=== PATIENT | female | born 1980 | race Two or more races ===

== ENCOUNTER → 2017-07-04 | Outpatient (REF) | payer OTHER | LOC: M SFHCLERA 15:35 | DX: J02.9 Acute pharyngitis, unspecified (principal) ==

== ENCOUNTER 2017-12-21 07:46 | Emergency (ER) | payer OTHER | END 2017-12-21 08:45 | disposition home or self-care (01) | LOC: M ED 07:46 | DX: S05.01XA Injury of conjunctiva and corneal abrasion without foreign body, right eye, initial encounter (principal); X58.XXXA Exposure to other specified factors, initial encounter; Y92.9 Unspecified place or not applicable; Y93.89 Activity, other specified; Y99.9 Unspecified external cause status; K21.9 Gastro-esophageal reflux disease without esophagitis; F41.9 Anxiety disorder, unspecified; J30.2 Other seasonal allergic rhinitis; Z87.442 Personal history of urinary calculi; Z79.899 Other long term (current) drug therapy | CPT/HCPCS: 99282 ==

== ENCOUNTER 2019-03-10 06:11 | Day surgery (SDC) | payer OTHER ==
[~2019-03-10] VITALS: Ht 162.6 cm; Wt 77.1 kg
[2019-03-10] VITALS (7 sets, daily range): BP systolic 101–123; BP diastolic 57–75
[~2019-03-10 06:11] MED LIST: ADDE20CA3 PO; ALLE180T33 PO; BENA25CA4 PO; CETI10TA PO; ERYTOIN8 OD; LR 1,000 ML IV ONE; OMEP-218 PO; OMEP10CASR PO; SERT-138 PO; ZOLO50TA PO; ceFAZolin SOD 1 GM in D5W MINI-BAG PLUS 50 ML IV ONE
[2019-03-10 07:01] LABS: URINE PREG TEST NEGATIVE (NEGATIVE)
[2019-03-10] MEDS ORDERED: PROPOFOL 200 MG/20 ML VIAL As Ordered ONE ×2 (07:13→10:18)
[2019-03-10] MEDS ORDERED: ROCURONIUM BROMIDE 50 MG/5 ML VIAL As Ordered ONE (07:13)
[2019-03-10] MEDS ORDERED: LIDOCAINE 2% INJ 100 MG/5 ML SDV (FOR ANES.) As Ordered ONE (07:13)
[2019-03-10] MEDS ORDERED: fentaNYL 250 MCG/5 ML INJECTION (J3010) As Ordered ONE (07:13)
[2019-03-10] MEDS ORDERED: MIDAZOLAM INJ 2 MG/2 ML VIAL (J2250) As Ordered ONE (07:13)
[2019-03-10] MEDS ORDERED: BUPIVACAINE LIPOSOME/PF 1.3% 20ML VIAL (13.3MG/ML)(EXPAREL)(C9290 PER1MG) As Ordered ONE (07:23)
[2019-03-10] MEDS ORDERED: BACITRACIN PWD 50,000 UNITS VIAL As Ordered ONE (07:24)
[2019-03-10] MEDS ORDERED: dexameTHASONE 4 MG/ML 1ML VIAL (J1100) As Ordered ONE (07:48)
[2019-03-10] MEDS ORDERED: SCOPOLAMINE 1MG TRANSDERMAL PATCH As Ordered ONE (07:49)
[2019-03-10] MEDS ORDERED: SCOPOLAMINE 1MG TRANSDERMAL PATCH TOP ONE (08:00)
[2019-03-10] MEDS ORDERED: HYDROmorphone HCL 2 MG/ML 1ML VIAL (J1170) As Ordered ONE (08:45)
[2019-03-10] MEDS ORDERED: METOCLOPRAMIDE INJ 10MG/2ML VIAL (J2765) As Ordered ONE (08:47)
[2019-03-10] MEDS ORDERED: ONDANSETRON 4MG/2ML VIAL (J2405) As Ordered ONE ×2 (08:50→13:01)
[2019-03-10] MEDS ORDERED: NEOSTIGMINE 10 MG/10 ML VIAL (J2710) As Ordered ONE (08:50)
[2019-03-10] MEDS ORDERED: GLYCOPYRROLATE INJ 0.2 MG/ML 2 ML VIAL As Ordered ONE (08:50)
[2019-03-10] MEDS ORDERED: KETOROLAC 60 MG/2 ML VIAL (J1885) As Ordered ONE (08:50)
--- NOTE | 2019-03-10 11:27 | POST-OPPD ---
Postoperative Procedure Note Date Of Procedure: Mar 10, 2019 PREOPERATIVE DIAGNOSIS: Symptomatic macromastia and breast ptosis bilateral POSTOPERATIVE DIAGNOSIS: same FINDINGS: Large ptotic breasts PROCEDURE: Bilateral mastopexy with breast reduction SURGEON: Dr Olvera ANESTHESIA: General SPECIMENS: Right breast 255g, Left Breast 254g ESTIMATED BLOOD LOSS: 50cc REPLACED: none DRAINS: 10 mm SATHISH drains COMPLICATIONS: none POSTOPERATIVE CONDITION: stable Dict: [id number] MORELIA OLVERA DO Mar 10, 2019 11:27
[2019-03-10] MEDS ORDERED: fentaNYL 100 MCG/2 ML INJECTION (J3010) IV PRN (11:30)
[2019-03-10] MEDS ORDERED: ONDANSETRON 4MG/2ML VIAL (J2405) IV PRN ×2 (11:30→13:15)
[2019-03-10] MEDS ORDERED: PERCOCET 5MG/325MG TAB PO PRN (11:30)
[2019-03-10] MEDS ORDERED: LR 1,000 ML IV SCH (11:30)
[2019-03-10] MEDS ORDERED: PERCOCET 5MG/325MG TAB As Ordered ONE (13:01)
[2019-03-10] MEDS: LR 1,000 ML IV SCH (13:44)
[2019-03-10] MEDS: ceFAZolin SOD 1 GM in D5W MINI-BAG PLUS 50 ML IV SCH (15:24)
[2019-03-10] MEDS: PERCOCET 5MG/325MG TAB PO PRN ×2 (16:18→21:29)
[2019-03-10] MEDS: MORPHINE 4 MG/ML 1ML VIAL/SYRINGE (J2270) IV PRN (22:58)
[2019-03-11] MEDS: ceFAZolin SOD 1 GM in D5W MINI-BAG PLUS 50 ML IV SCH (00:36)
[2019-03-11 02:15] VITALS: BP 102/51
[2019-03-11] MEDS: LR 1,000 ML IV SCH (02:20)
[2019-03-11 06:22] VITALS: BP 115/60
[2019-03-11] MEDS: PERCOCET 5MG/325MG TAB PO PRN (06:38)
--- NOTE | 2019-03-11 08:02 | RO ---
DATE OF PROCEDURE: 03/10/2019 PREOPERATIVE DIAGNOSIS: Bilateral symptomatic mastectomy. POSTOPERATIVE DIAGNOSIS: Bilateral symptomatic mastectomy. PROCEDURE: Bilateral mastectomy with breast reduction. ATTENDING SURGEON: Dr. Clark. ANESTHESIA: General. SPECIMENS SENT: Right breast 255 grams, left breast 254 grams. BLOOD LOSS: 50 mL. REPLACEMENT: No replacements needed. Two 10 mm Kenny Segura drains were left in place. POSTOPERATIVE CONDITION: Stable. PROCEDURE: This is a 38-year-old female who lost some weight but still has large breasts. Patient has significant discomfort in her upper back and neck from pendulum motion of the breasts with the extra weight. She is a good candidate for mastectomy with a small breast reduction. All risks, benefits, and alternatives were discussed with the patient and she is ready to proceed on the day of surgery. She was marked in the preoperative holding area. Her left sternal notch to nipple areolar complex is 30 cm in length and on the right side it is 31. The inframammary 21.5 cm. She is marked like I said in the preoperative in the standing position and then informed consent was confirmed. She was brought in to the operating room and placed in supine position. Preoperative antibiotics were given. Sequentials on the lower calves. General anesthesia was induced. She was prepped and draped in the usual sterile fashion. On the right side we outlined her nipple areolar complex at 42 mm in diameter. The incision was started using a 10 blade . The inferior lateral portion of the breast was marked and resected using Peak and regular cautery and the pedicle was thoroughly examined and good vasculature and good perfusion. The pedicle was de epithelized using Crane scissors and it was turned superiorly to its new location at 21.5 cm from the sternal notch making a lift of 9.5 cm on that size. The breast mound was recreated using 0- Vicryl sutures and the pillars were then closed with interrupted 3 Monocryl sutures, vertical scar is 7.5 cm. Excess tissue was measured and resected creating the horizontal incision and then a 10 mm Kenny Segura drain was placed to the lateral portion of that horizontal incision. Nipple areolar complex was sutured in placed with interrupted 3-0 Monocryl and 4-0 Monocryl and a 5-0 plain suture. Then we turned our attention to the left side. 42 mm diameter in the nipple areolar complex was outlined and then we started our dissection. The dissection was done using electrocautery and the peak cautery. Inferior lateral dressing was removed. We irrigated it and turned superiorly of 21.5 cm and 9 cm lift. The mound was recreated using assistance from 0 Vicryl sutures then the flaps were closed with interrupted 3-0 Monocryl sutures. Excess tissue was measured and resected creating the horizontal scar. 10 mm Kenny Segura Drain was placed through the lateral portion and the nipple areolar complex was sutured in interrupted 3-0 and 4-0 sutures as well as a 5-0 plain. Dermal stitch in the nipple areolar complex. Both breasts were injected with Exparel local anesthetic. A total of 16 mL between the two. Prinio dressing was applied to inferior and then vertical scars and Xeroform was applied to the nipple areolar complex. A bulky dressing was applied with a surgical bra. Patient was awakened in the operating room and went to the recovery room in stable condition. KALYAN
--- NOTE | 2019-03-11 08:58 | IPNPDOC ---
Subjective General Date/Time Seen The patient was seen on 03/11/19 at 07:52. Subject Chief Complaint/History The patient is a 38-year-old female admitted with a reason for visit of Breast Hypertrophy, Ptosis. S/p bilateral mastopexy, breast reduction POD 1. Doing well. Pain controlled. Current Medications Current Medications Current Medications Medications (Trade) Dose Ordered Sig/Catherine Route PRN Reason Start Time Stop Time Status Last Admin Dose Admin Cefazolin Sodium 1 gm/Dextrose 50 ml @ 100 mls/hr Q8H IV 03/10/19 16:00 03/11/19 00:30 DC 03/11/19 00:36 Fentanyl Citrate (Sublimaze) 25 mcg Q5MP PRN IV MODERATE PAIN (PS 4-7) 03/10/19 11:30 03/10/19 12:30 DC Lactated Ringer's 1,000 ml @ 75 mls/hr [id number] IV 03/10/19 13:00 03/10/19 13:44 Lactated Ringer's 1,000 ml @ 80 mls/hr [id number] IV 03/10/19 11:30 03/10/19 12:30 DC Morphine Sulfate (Morphine Sulfate Inj) 4 mg Q4HP PRN IV SEVERE PAIN (PS 8-10) 03/10/19 13:15 03/10/19 22:58 Ondansetron HCl (ZOFRAN INJection) 4 mg Q4HP PRN IV NAUSEA OR VOMITING 03/10/19 11:30 03/10/19 14:00 DC 03/10/19 13:05 Ondansetron HCl (ZOFRAN INJection) 4 mg Q6HP PRN IV NAUSEA 03/10/19 13:15 Oxycodone/ Acetaminophen (Percocet 5mg/ 325mg Tablet) 1 tab ASDIRECTED PRN PO MILD/MODERATE PAIN (PS 1-7) 03/10/19 11:30 03/10/19 14:00 DC 03/10/19 13:10 Oxycodone/ Acetaminophen (Percocet 5mg/ 325mg Tablet) 1 tab Q4HP PRN PO MODERATE PAIN (PS 5-7) 03/10/19 13:15 03/11/19 06:38 Allergies Coded Allergies: ENVIROMENTAL (Verified Allergy, Unknown, 02/25/19) Objective Physical Examination Examination GENERAL APPEARANCE:Patient seen, laying in bed, awake, alert, and oriented. Comfortable, in no acute distress. SKIN: Warm and moist. BREAST: incisions intact. NAC viable, pink. SATHISH drains serosanguinous. Post op ecchymosis mild. No expanding hematomas. HEENT: Normocephalic, atraumatic. Milo palpebral conjunctiva, anicteric sclerae. Lips and mucosa appear moist. NECK: Supple, no thyromegaly. No obvious jugular venous distention. LUNGS: Clear to auscultation bilaterally. No wheezing appreciated. HEART: No chest wall abnormalities. Regular rate and rhythm with no murmurs appreciated. Vital Signs Vital Signs Date Time Temp Pulse Resp B/P (MAP) Pulse Ox O2 Delivery O2 Flow Rate FiO2 03/11/19 07:35 16 03/11/19 06:22 98.1 74 115/60 (78) 97 I&Os I&O- Last 24 Hours up to 6 AM 03/11/19 06:00 Intake Total 4865 ml Output Total 745 ml Balance 4120 ml Laboratory Data Labs 24H Laboratory Tests 2 03/10/19 20:50: Bedside Glucose (Misc Panel) 128H Impression S/p mastopexy with breast reduction. Doing well. Pain controlled. Stable for discharge. Dressing changed Instructions given. SATHISH monitoring at home F/up plastic surgery Plan / VTE VTE Prophylaxis Ordered?: Yes MORELIA OLVERA DO Mar 11, 2019 08:58
[2019-03-11] MEDS ORDERED: OXYC1TAB23 PO (09:02)
[2019-03-11] MEDS: MORPHINE 4 MG/ML 1ML VIAL/SYRINGE (J2270) IV PRN (09:28)
== END 2019-03-11 11:15 | disposition home or self-care (01) ==
LOC: M SDC 06:11 → M MS5PR 13:20 → M SDC 03-11 11:15
PROVIDERS: ATTEND Plastic Surgery Surgery of the Hand
DX: N62 Hypertrophy of breast (principal); N64.81 Ptosis of breast; K21.9 Gastro-esophageal reflux disease without esophagitis; F41.9 Anxiety disorder, unspecified; Z79.899 Other long term (current) drug therapy
CPT/HCPCS: 19316; 19318; 84703; 88305; 96374; 96375; 96376; C9290; J0690; J1100; J1170; J1885; J2250; J2270; J2405; J2710; J2765; J3010